=== PATIENT | female | born 1930 | race Caucasian/White ===

== ENCOUNTER 2017-12-25 14:11 | Inpatient (IN) | payer OTHER ==
[~2017-12-25] VITALS: Ht 160 cm; Wt 66.2 kg
--- NOTE | ~2017-12-25 | EKG ---
[place] [address] ELECTROCARDIOGRAM REPORT Name: BONITA HUNT Room: [address] IN [facility].#: [id number] Admission: 12/25/17 Attend Phys: Jose Hightower MD Discharge: Date of : 32 Report #: [id number] THIS REPORT FOR: //name// [facility] ED Test Date: 2017-12-25 Test Time: 15:20:39 Pat Name: BONITA HUNT Department: Room: Gender: Product Info Specialist: Zac STEPHEN : 1930 Requested By: Devyn Ying Order Number: [id number] MD: Measurements Intervals [place] Rate: 65 P: 41 MA: 162 QRS: -24 QRSD: 146 T: 139 QT: 454 QTc: 473 Interpretive Statements Sinus rhythm Left bundle branch block Compared to ECG 07/14/2009 07:49:11 Ventricular premature complex(es) no longer present [email or web address] By: 1520 1520 Epiphany EpiphanyMD /EPI
--- NOTE | ~2017-12-25 | PROC ---
[address] [address] PROCEDURE REPORT Name: BONITA HUNT Room: [address] IN ..#: [id number] Admission: 12/25/17 Attend Phys: Jose Hightower MD Discharge: Date of : 31 Report #: [id number] THIS REPORT FOR: //name// For GI report, please see the Provation report in Perceptive 7 content. By: 0858Medical Records Staff ISRAEL /KANDY
[2017-12-25 14:19] VITALS: BP 131/71
[2017-12-25] MEDS ORDERED: NORVASC5 MG PO (14:32)
[2017-12-25] MEDS ORDERED: DONEPEZIL HCL 55 M1 PO (14:32)
[2017-12-25] MEDS ORDERED: HYDROCODONE-AP1 EAC6 PO (14:33)
[2017-12-25] MEDS ORDERED: SYNTHROID50 MCG PO (14:33)
[2017-12-25] MEDS ORDERED: LEVEMIR SUBQ (14:33)
[2017-12-25] MEDS ORDERED: HYDROXYZINE HCL25 M1 PO (14:33)
[2017-12-25] MEDS ORDERED: COUMADIN 2 MG TA2 M1 PO (14:34)
[2017-12-25] MEDS ORDERED: NOVOLOG100 UNIT/1 SUBQ (14:34)
[2017-12-25] MEDS ORDERED: SERTRALINE HCL50 MG PO (14:34)
[2017-12-25] MEDS ORDERED: TOPROL XL25 MG PO (14:34)
[2017-12-25] MEDS ORDERED: SEROQUEL 25 MG25 M1 PO (14:34)
[2017-12-25] MEDS ORDERED: APAP650 PO (14:35)
[2017-12-25 15:30] LABS: ABSOLUTE BASOPHILS 0.1 thou/uL (0.0-0.2); ABSOLUTE EOSINOPHILS 0.1 thou/uL (0.0-0.7); ABSOLUTE LYMPHOCYTES 1.2 thou/uL (0.8-5.3); ABSOLUTE MONOCYTES 0.3 thou/uL (0.0-1.2); ABSOLUTE NEUTROPHILS 2.7 thou/uL (1.6-8.1); BASOPHILS 1.5 %; EOSINOPHILS 2.2 %; HEMATOCRIT 28.3 % (37.0-47.0); HEMOGLOBIN 9.1 gm/dL (12.0-15.0); LYMPHOCYTES 27.2 %; MCH 26.8 pg (26.0-34.0); MCHC 32.2 g/dL (28.0-37.0); MCV 83.2 fL (80.0-100.0); MONOCYTES 7.5 %; MPV 7.3 fl. (7.2-11.1); NUCLEATED RBCS 0 /100WBC; PLATELET COUNT* 358 thou/uL (150-400); POLYS 61.6 %; RDW-CV 19.2 % (10.5-14.5); WBC 4.4 thou/uL (4.0-11.0)
[2017-12-25 15:38] LABS: ANION GAP 10 mmol/L (7-16); BUN 7 mg/dL (7-18); CALCIUM 8.2 mg/dL (8.5-10.1); CHLORIDE 107 mmol/L (98-107); CO2 25 mmol/L (21-32); GLUCOSE 152 mg/dL (70-99); INR 2.6; POTASSIUM 3.6 mmol/L (3.5-5.1); SODIUM 142 mmol/L (136-145)
[2017-12-25 15:45] LABS: ALBUMIN 2.5 g/dL (3.4-5.0); ALKALINE PHOSPHATASE 69 U/L (46-116); LIPASE 46 U/L (73-393); SGOT 19 U/L (15-37); SGPT 7 U/L (30-65); TOTAL BILIRUBIN 0.3 mg/dL (<0.1-1.0); TOTAL PROTEIN 6.1 g/dL (6.4-8.2); TROPONIN-I LEVEL <0.06 ng/mL (<0.06)
[2017-12-25 16:53] LABS: URINE BILIRUBIN NEGATIVE (Negative); URINE BLOOD TRACE (Negative); URINE CLARITY HAZY; URINE COLOR YELLOW; URINE GLUCOSE-RANDOM NEGATIVE (Negative); URINE KETONES 1+ (Negative); URINE LEUKOCYTES-REFLEX 1+ (Negative); URINE NITRITE-REFLEX NEGATIVE (Negative); URINE PROTEIN TRACE (Negative); URINE SPECIFIC GRAVITY 1.025 (1.005-1.030); URINE UROBILINOGEN 0.2 E.U./dl (0.2-1.0)
[2017-12-25 16:58] LABS: SQUAMOUS >10 Many /LPF (0-3); URINE WBC-REFLEX >25 Many /HPF (0-5)
[2017-12-25 16:59] LABS: CASTS None Seen /LPF (None Seen); CRYSTALS None Seen /LPF (None Seen); URINE RBC 0-2 Rare /HPF (0-2); YEAST-REFLEX Present (None Seen)
[2017-12-25 19:31] VITALS: BP 159/75
[2017-12-25 19:50] VITALS: BP 175/76
[2017-12-25 23:55] VITALS: BP 178/77
[2017-12-26 04:28] LABS: CALCIUM 8.1 mg/dL (8.5-10.1); POTASSIUM 3.4 mmol/L (3.5-5.1)
[2017-12-26 04:36] LABS: ABSOLUTE BASOPHILS 0.1 thou/uL (0.0-0.2); ABSOLUTE EOSINOPHILS 0.2 thou/uL (0.0-0.7); ABSOLUTE MONOCYTES 0.5 thou/uL (0.0-1.2); ABSOLUTE NEUTROPHILS 2.1 thou/uL (1.6-8.1); BASOPHILS 1.3 %; EOSINOPHILS 3.7 %; HEMATOCRIT 27.5 % (37.0-47.0); HEMOGLOBIN 8.7 gm/dL (12.0-15.0); LYMPHOCYTES 41.5 %; MCH 26.4 pg (26.0-34.0); MCHC 31.7 g/dL (28.0-37.0); MCV 83.2 fL (80.0-100.0); MONOCYTES 10.2 %; MPV 7.7 fl. (7.2-11.1); NUCLEATED RBCS 0 /100WBC; PLATELET COUNT* 332 thou/uL (150-400); POLYS 43.3 %; RBC 3.31 mil/uL (4.20-5.00); RDW-CV 19.4 % (10.5-14.5); WBC 4.9 thou/uL (4.0-11.0)
[2017-12-26 08:00] VITALS: BP 184/72
[2017-12-26 11:39] VITALS: BP 161/59
[2017-12-26 12:22] LABS: INR 2.5; PROTIME 24.1 Seconds (9.20-11.50)
[2017-12-26 15:32] VITALS: BP 160/67
[2017-12-26 20:30] VITALS: BP 166/74
[2017-12-26 23:30] VITALS: BP 165/63
[2017-12-27 04:40] LABS: ABSOLUTE BASOPHILS 0.1 thou/uL (0.0-0.2); ABSOLUTE EOSINOPHILS 0.1 thou/uL (0.0-0.7); ABSOLUTE LYMPHOCYTES 1.4 thou/uL (0.8-5.3); ABSOLUTE MONOCYTES 0.5 thou/uL (0.0-1.2); ABSOLUTE NEUTROPHILS 2.7 thou/uL (1.6-8.1); BASOPHILS 1.2 %; HEMATOCRIT 28.2 % (37.0-47.0); HEMOGLOBIN 8.7 gm/dL (12.0-15.0); LYMPHOCYTES 30.4 %; MCH 26.3 pg (26.0-34.0); MCHC 30.9 g/dL (28.0-37.0); MCV 84.9 fL (80.0-100.0); MONOCYTES 10.2 %; MPV 7.8 fl. (7.2-11.1); NUCLEATED RBCS 0 /100WBC; PLATELET COUNT* 347 thou/uL (150-400); POLYS 56.2 %; RBC 3.32 mil/uL (4.20-5.00); RDW-CV 19.2 % (10.5-14.5); WBC 4.8 thou/uL (4.0-11.0)
[2017-12-27 05:24] LABS: ALBUMIN 2.3 g/dL (3.4-5.0); CALCIUM 8.3 mg/dL (8.5-10.1); POTASSIUM 3.6 mmol/L (3.5-5.1); TOTAL BILIRUBIN 0.2 mg/dL (<0.1-1.0); TOTAL PROTEIN 5.4 g/dL (6.4-8.2)
[2017-12-27 08:40] VITALS: BP 155/76
[2017-12-27 16:00] VITALS: BP 156/78
[2017-12-27 20:30] VITALS: BP 166/66
[2017-12-28 08:00] VITALS: BP 170/63
[2017-12-28 15:23] LABS: INR 2.3; PROTIME 22.1 Seconds (9.20-11.50)
[2017-12-28 15:41] VITALS: BP 147/84
[2017-12-28 19:21] VITALS: BP 150/66; BP 157/64; BP 165/64
[2017-12-28 20:30] VITALS: BP 167/64
[2017-12-28 21:06] VITALS: BP 150/66; BP 157/63; BP 164/64
[2017-12-29 03:59] LABS: ABSOLUTE BASOPHILS 0.1 thou/uL (0.0-0.2); ABSOLUTE EOSINOPHILS 0.2 thou/uL (0.0-0.7); ABSOLUTE LYMPHOCYTES 1.7 thou/uL (0.8-5.3); ABSOLUTE MONOCYTES 0.6 thou/uL (0.0-1.2); ABSOLUTE NEUTROPHILS 3.1 thou/uL (1.6-8.1); EOSINOPHILS 4.1 %; HEMATOCRIT 27.6 % (37.0-47.0); HEMOGLOBIN 8.7 gm/dL (12.0-15.0); LYMPHOCYTES 29.9 %; MCHC 31.5 g/dL (28.0-37.0); MCV 82.5 fL (80.0-100.0); MONOCYTES 9.9 %; MPV 7.3 fl. (7.2-11.1); NUCLEATED RBCS 0 /100WBC; PLATELET COUNT* 327 thou/uL (150-400); POLYS 55.1 %; RBC 3.35 mil/uL (4.20-5.00); RDW-CV 19.5 % (10.5-14.5); WBC 5.7 thou/uL (4.0-11.0)
[2017-12-29 04:07] LABS: ALBUMIN 2.2 g/dL (3.4-5.0); CALCIUM 8.1 mg/dL (8.5-10.1); TOTAL BILIRUBIN 0.2 mg/dL (<0.1-1.0); TOTAL PROTEIN 5.3 g/dL (6.4-8.2)
[2017-12-29 04:09] LABS: INR 1.9; PROTIME 18.4 Seconds (9.20-11.50)
[2017-12-29 04:12] LABS: POTASSIUM 2.8 mmol/L (3.5-5.1)
[2017-12-29 08:17] VITALS: BP 168/60
[2017-12-29 15:44] VITALS: BP 151/64
[2017-12-29 20:00] VITALS: BP 167/81
[2017-12-30 00:10] VITALS: BP 163/68
[2017-12-30 04:09] LABS: ABSOLUTE BASOPHILS 0.1 thou/uL (0.0-0.2); ABSOLUTE EOSINOPHILS 0.2 thou/uL (0.0-0.7); ABSOLUTE LYMPHOCYTES 1.7 thou/uL (0.8-5.3); ABSOLUTE MONOCYTES 0.5 thou/uL (0.0-1.2); ABSOLUTE NEUTROPHILS 1.9 thou/uL (1.6-8.1); BASOPHILS 1.2 %; EOSINOPHILS 5.4 %; HEMATOCRIT 27.7 % (37.0-47.0); HEMOGLOBIN 8.8 gm/dL (12.0-15.0); LYMPHOCYTES 39.4 %; MCH 26.3 pg (26.0-34.0); MCHC 31.8 g/dL (28.0-37.0); MCV 82.5 fL (80.0-100.0); MPV 7.6 fl. (7.2-11.1); NUCLEATED RBCS 0 /100WBC; PLATELET COUNT* 307 thou/uL (150-400); RBC 3.36 mil/uL (4.20-5.00); RDW-CV 18.9 % (10.5-14.5); WBC 4.4 thou/uL (4.0-11.0)
[2017-12-30 04:22] LABS: INR 1.6; PROTIME 15.1 Seconds (9.20-11.50)
[2017-12-30 04:33] LABS: ALBUMIN 2.3 g/dL (3.4-5.0); CALCIUM 8.2 mg/dL (8.5-10.1); CREATININE 0.8 mg/dL (0.6-1.3); POTASSIUM 4.4 mmol/L (3.5-5.1); TOTAL BILIRUBIN 0.2 mg/dL (<0.1-1.0); TOTAL PROTEIN 5.8 g/dL (6.4-8.2)
[2017-12-30 08:34] VITALS: BP 178/73
[2017-12-30 08:36] VITALS: BP 178/73
[2017-12-30 09:00] VITALS: BP 160/83
[2017-12-30 16:08] VITALS: BP 176/77
[2017-12-30 22:00] VITALS: BP 153/57
[2017-12-31] VITALS: BP 174/72
[2017-12-31 04:07] LABS: HEMATOCRIT 26.8 % (37.0-47.0); HEMOGLOBIN 8.5 gm/dL (12.0-15.0); MCH 26.3 pg (26.0-34.0); MCHC 31.8 g/dL (28.0-37.0); MCV 82.8 fL (80.0-100.0); MPV 7.8 fl. (7.2-11.1); RBC 3.24 mil/uL (4.20-5.00); RDW-CV 19.6 % (10.5-14.5); WBC 5.7 thou/uL (4.0-11.0)
[2017-12-31 04:16] LABS: ALBUMIN 2.3 g/dL (3.4-5.0); CALCIUM 8.5 mg/dL (8.5-10.1); CREATININE 0.9 mg/dL (0.6-1.3); MAGNESIUM 1.4 mg/dL (1.8-2.4); POTASSIUM 3.9 mmol/L (3.5-5.1); TOTAL BILIRUBIN 0.2 mg/dL (<0.1-1.0); TOTAL PROTEIN 5.8 g/dL (6.4-8.2)
[2017-12-31 09:45] VITALS: BP 165/68
[2017-12-31 16:00] VITALS: BP 146/60
[2017-12-31 21:45] VITALS: BP 156/65
[2018-01-01 04:23] LABS: HEMOGLOBIN 7.9 gm/dL (12.0-15.0); MCH 26.1 pg (26.0-34.0); MCHC 31.4 g/dL (28.0-37.0); MCV 82.9 fL (80.0-100.0); MPV 7.9 fl. (7.2-11.1); RBC 3.02 mil/uL (4.20-5.00); RDW-CV 19.3 % (10.5-14.5); WBC 3.8 thou/uL (4.0-11.0)
[2018-01-01 04:36] LABS: ALBUMIN 2.2 g/dL (3.4-5.0); CALCIUM 8.4 mg/dL (8.5-10.1); CREATININE 0.9 mg/dL (0.6-1.3); MAGNESIUM 1.3 mg/dL (1.8-2.4); POTASSIUM 3.4 mmol/L (3.5-5.1); TOTAL BILIRUBIN 0.2 mg/dL (<0.1-1.0); TOTAL PROTEIN 5.4 g/dL (6.4-8.2)
[2018-01-01 08:30] VITALS: BP 144/69
[2018-01-01 16:43] VITALS: BP 170/77
[2018-01-01 21:30] VITALS: BP 158/61
[2018-01-02 09:50] VITALS: BP 141/72
[2018-01-02] MEDS ORDERED: AUGMENTIN250 MG/55 PO ×2 (14:11→15:38)
[2018-01-02] MEDS ORDERED: XANAX 0.25 MG0.25 MG PO (14:39)
[2018-01-02 14:43] VITALS: BP 141/72
[2018-01-02 14:46] VITALS: BP 141/72
--- NOTE | 2018-01-09 16:59 | CON ---
[address] [address] CONSULTATION Name: BONITA HUNT Room: [address] IN .R.#: [id number] Admission: 12/25/17 Attend Phys: Jose Hightower MD Discharge: 01/02/18 Date of : 31 Report #: [id number] THIS REPORT FOR: //name// CC: Jose Pereyra DICTATED BY: Adriana Perales [facility] DATE OF SERVICE: 12/26/2017 Please note at the time of this dictation, the patient was seen and physically examined by myself. REASON FOR CONSULTATION: Nausea and vomiting and dysphagia. HISTORY OF PRESENT ILLNESS: This is an 87-year-old female who presented to the Emergency Room, was being unable to keep anything down, which was an onset from 5 days ago, then she has been having recurrent nausea and vomiting. The patient had been hospitalized at [place] in November for resection of a cancerous tumor in her colon and then was discharged from there and sent her to rehabilitation. Apparently, she has been having ongoing esophageal pain, she describes it as chest pain and then having this nausea and vomiting at that time. In 2014, she was seen by us and she had an EGD performed at that time that showed a hypertonic esophageal stricture in which Botox was injected at that time. She was seen again in 2016 as an inpatient for anemia at that time, but no endoscopy studies were performed. The patient does complain of a little bit of incisional discomfort, but otherwise, no other problems noted at this time. ALLERGIES: INCLUDE METRONIDAZOLE, MELOXICAM, LISINOPRIL, DULOXETINE AND NITROIMIDAZOLE. MEDICATIONS: From home include Norvasc, donepezil, hydrocodone, hydralazine, hydroxyzine, Levemir, Synthroid, Lopressor, NovoLog, Seroquel, Coumadin, Zoloft and Tylenol Arthritis. PAST MEDICAL HISTORY: Diabetes, history of stent placement, hypothyroidism, dementia. PAST SURGICAL HISTORY: Recent colon resection, hysterectomy, appendectomy and cholecystectomy. FAMILY HISTORY: Noncontributory. SOCIAL HISTORY: Negative for any alcohol, [place] [address] CONSULTATION Name: ANDREINABONITA VICENTE Room: [address]#: [id number] Admission: 12/25/17 Attend Phys: Jose Hightower MD Discharge: 01/02/18 Date of : 31 Report #: [id number] REVIEW OF SYSTEMS: Twelve-point review of systems is essentially negative except what is mentioned in the HPI. PHYSICAL EXAMINATION: VITAL SIGNS: Temperature 36.2, pulse 66, respirations 17, blood pressure 184/72. HEART: Regular rate and rhythm. LUNGS: Clear. ABDOMEN: Soft, positive bowel sounds in all 4 quadrants with no masses or tenderness noted. Incision superficially, some suppuration noted with slight tenderness around the site. LABORATORY DATA: Hemoglobin 8.7, hematocrit 27.5, white count is 4.9, platelets 332. Sodium 142, potassium 3.4, chloride 108, CO2 26, BUN is 6, creatinine is 1, GFR is 53 and glucose is 123. PT is 25 and INR is 2.6. CT of the abdomen and pelvis, small hiatal hernia post-cholecystectomy, extensive pancreatic calcifications noted and colonic diverticulosis. IMPRESSION: 1. Nausea and vomiting. 2. Dysphagia. 3. Anticoagulant therapy, history of stent. 4. Recent colon resection secondary to tumor. 5. Anemia, chronic. PLAN: 1. We will await her records from [facility] for review to see what has been done. 2. Warfarin is currently on hold. 3. After reviewing the records and her INR returns down to normal, we will consider an EGD with Botox. 4. Depending on reviewing of records, may consider a barium swallow to further evaluate her esophagus and complaints. Thank you for allowing us to participate in this patient's care. Please do not hesitate to call with any questions in regard to this consult. ADDENDUM The patient with history of colon cancer and recent sigmoid resection and colocolonic anastomosis who also has history of achalasia and has had undergone upper endoscopy with Botox injection 2 months ago. She presents with dysphagia and inability to swallow. The patient also is on anticoagulation therapy, warfarin for her history of stents. We will consider low dose Xanax 0.25 mg q. 8 hours to see [place] [address] CONSULTATION Name: BONITA HUNT Room: [address] IN ..#: [id number] Admission: 12/25/17 Attend Phys: Jose Hightower MD Discharge: 01/02/18 Date of : 31 Report #: [id number] esophagus and improve her swallowing. We will consider upper endoscopy and further evaluation of her esophagus once her INR is below 1.2. <ELECTRONICALLY SIGNED> By: Bhanu Christensen MD 01/09/18 1659 1028 [id number] Christensen MD /nt
--- NOTE | 2018-01-19 11:09 | PATH ---
[address] [address] PATHOLOGY RPT PROCEDURE Name: BONITA HUNT Room: [address] IN .R.#: [id number] Admission: 12/25/17 Date of : 32 Discharge: 01/02/18 Report #: [id number] Path Case #: [id number] [facility] Accession Number: [id number] . 01 Material submitted: . DUODENAL ULCER BIOPSY . 01 Clinical history: . Dehydration, UTI . 02 Diagnosis: Duodenal ulcer biopsy: - Severe nonspecific active duodenitis, negative for granulomas, viral inclusions and dysplasia. (LY:leanna; 01/02/2018) QMS/01/02/2018 . 02 Electronically signed: . Wilmar Sanchez MD, Pathologist NPI- [id number] . 01 Gross description: . The specimen is received in formalin, labeled "Emperatriz Bonita, duodenal ulcer biopsy" and consists of multiple fragments of garcia soft tissue measuring 1.5 x 0.5 x 0.2 cm in aggregate. They are entirely submitted in A1. (SDY; 01/01/2018) SYU/SYU . 02 Pathologist provided ICD-10: K29.80 . 02 CPT . 702028 Performed at: [address], [place], [place] [id number] MD Tex Valenzuela MD Phone: [phone] Performed at: [address] [facility] [address], [place], [place] [id number] MD Wilmar Sanchez MD Phone: [phone]
== END 2018-01-02 16:00 | disposition home health service (06) | DRG 177 ==
LOC: M.ERS 14:11 → M.ORTHSURG 17:32 → M.TBA-ER 17:32 → M.ORTHSURG 19:39
PROVIDERS: Emergency Medicine Emergency Medical Services; Family Medicine; Internal Medicine Gastroenterology; Nurse Practitioner Adult Health; ADMIT Internal Medicine
DX: J69.0 Pneumonitis due to inhalation of food and vomit (principal); E43 Unspecified severe protein-calorie malnutrition; N39.0 Urinary tract infection, site not specified; K22.4 Dyskinesia of esophagus; E86.0 Dehydration; E87.6 Hypokalemia; K44.9 Diaphragmatic hernia without obstruction or gangrene; K26.9 Duodenal ulcer, unspecified as acute or chronic, without hemorrhage or perforation; E83.42 Hypomagnesemia; E03.9 Hypothyroidism, unspecified; F03.90 Unspecified dementia, unspecified severity, without behavioral disturbance, psychotic disturbance, mood disturbance, and anxiety; D64.9 Anemia, unspecified; E11.9 Type 2 diabetes mellitus without complications; Z85.038 Personal history of other malignant neoplasm of large intestine; Z68.25 Body mass index [BMI] 25.0-25.9, adult; Z95.5 Presence of coronary angioplasty implant and graft; Z90.49 Acquired absence of other specified parts of digestive tract; Z90.710 Acquired absence of both cervix and uterus; Z79.01 Long term (current) use of anticoagulants; Z79.4 Long term (current) use of insulin; Z79.899 Other long term (current) drug therapy; Z88.8 Allergy status to other drugs, medicaments and biological substances

== ENCOUNTER 2018-01-03 20:03 | Inpatient (IN) | payer OTHER ==
[~2018-01-03] VITALS: Ht 160 cm; Wt 80.3 kg
[~2018-01-03 20:03] MED LIST: APAP650 PO; AUGMENTIN250 MG/55 PO; COUMADIN 2 MG TA2 M1 PO; DONEPEZIL HCL 55 M1 PO; HYDROCODONE-AP1 EAC6 PO; HYDROXYZINE HCL25 M1 PO; LEVEMIR SUBQ; NORVASC5 MG PO; NOVOLOG100 UNIT/1 SUBQ; SEROQUEL 25 MG25 M1 PO; SERTRALINE HCL50 MG PO; SYNTHROID50 MCG PO; TOPROL XL25 MG PO; XANAX 0.25 MG0.25 MG PO
[2018-01-03 20:26] LABS: ABSOLUTE EOSINOPHILS 0.2 thou/uL (0.0-0.7); ABSOLUTE LYMPHOCYTES 1.7 thou/uL (0.8-5.3); ABSOLUTE MONOCYTES 0.6 thou/uL (0.0-1.2); ABSOLUTE NEUTROPHILS 2.2 thou/uL (1.6-8.1); BASOPHILS 0.7 %; EOSINOPHILS 3.6 %; HEMATOCRIT 29.6 % (37.0-47.0); HEMOGLOBIN 9.5 gm/dL (12.0-15.0); MCH 25.9 pg (26.0-34.0); MCV 81.1 fL (80.0-100.0); MONOCYTES 13.6 %; MPV 7.6 fl. (7.2-11.1); NUCLEATED RBCS 0 /100WBC; POLYS 46.1 %; RBC 3.65 mil/uL (4.20-5.00); RDW-CV 19.6 % (10.5-14.5); WBC 4.8 thou/uL (4.0-11.0)
[2018-01-03 20:28] LABS: PLATELET COUNT* 359 thou/uL (150-400)
[2018-01-03 20:36] LABS: ANION GAP 7 mmol/L (7-16); BUN 5 mg/dL (7-18); CALCIUM 9.1 mg/dL (8.5-10.1); CHLORIDE 105 mmol/L (98-107); CO2 29 mmol/L (21-32); CREATININE 1.2 mg/dL (0.6-1.3); GLUCOSE 70 mg/dL (70-99); POTASSIUM 3.5 mmol/L (3.5-5.1); SODIUM 141 mmol/L (136-145)
[2018-01-03 20:39] LABS: INR 1.6; PROTIME 15.8 Seconds (9.20-11.50)
[2018-01-03 20:47] LABS: ALBUMIN 2.5 g/dL (3.4-5.0); ALKALINE PHOSPHATASE 78 U/L (46-116); LIPASE 50 U/L (73-393); NT-PRO BRAIN NAT PEPTIDE 11011 pg/mL (<300); SGOT 15 U/L (15-37); SGPT 6 U/L (30-65); TOTAL BILIRUBIN 0.3 mg/dL (<0.1-1.0); TOTAL PROTEIN 5.9 g/dL (6.4-8.2); TROPONIN-I LEVEL <0.06 ng/mL (<0.06)
[2018-01-03 21:34] LABS: URINE BILIRUBIN NEGATIVE (Negative); URINE BLOOD NEGATIVE (Negative); URINE CLARITY CLEAR; URINE COLOR YELLOW; URINE GLUCOSE-RANDOM NEGATIVE (Negative); URINE KETONES NEGATIVE (Negative); URINE LEUKOCYTES-REFLEX TRACE (Negative); URINE NITRITE-REFLEX NEGATIVE (Negative); URINE PROTEIN TRACE (Negative); URINE UROBILINOGEN 0.2 E.U./dl (0.2-1.0)
[2018-01-03 21:50] LABS: SQUAMOUS 4-10 Moderate /LPF (0-3)
[2018-01-03 21:51] LABS: BACTERIA-REFLEX 1-9 Few /HPF (None Seen); CRYSTALS None Seen /LPF (None Seen); HYALINE CASTS 0-3 Few /LPF (None Seen); URINE RBC 0-2 Rare /HPF (0-2); URINE WBC-REFLEX 6-15 Few /HPF (0-5)
[2018-01-03 23:16] VITALS: BP 103/55
[2018-01-04] VITALS: BP 146/79
[2018-01-04 04:00] VITALS: BP 120/67
[2018-01-04 04:27] LABS: HEMATOCRIT 25.5 % (37.0-47.0); HEMOGLOBIN 8.2 gm/dL (12.0-15.0); MCH 26.1 pg (26.0-34.0); MCHC 32.1 g/dL (28.0-37.0); MCV 81.1 fL (80.0-100.0); MPV 7.5 fl. (7.2-11.1); RBC 3.14 mil/uL (4.20-5.00); RDW-CV 19.8 % (10.5-14.5); WBC 4.4 thou/uL (4.0-11.0)
[2018-01-04 04:36] LABS: ALKALINE PHOSPHATASE 62 U/L (46-116); ANION GAP 2 mmol/L (7-16); BUN 4 mg/dL (7-18); CALCIUM 8.6 mg/dL (8.5-10.1); CHLORIDE 109 mmol/L (98-107); CO2 29 mmol/L (21-32); CREATININE 1.1 mg/dL (0.6-1.3); GLUCOSE 91 mg/dL (70-99); POTASSIUM 3.4 mmol/L (3.5-5.1); SGOT 15 U/L (15-37); SODIUM 140 mmol/L (136-145); TOTAL BILIRUBIN 0.4 mg/dL (<0.1-1.0); TOTAL PROTEIN 5.2 g/dL (6.4-8.2)
[2018-01-04 05:01] LABS: SGPT < 6 U/L (30-65)
[2018-01-04 08:05] VITALS: BP 126/54
[2018-01-04] MEDS ORDERED: PROTONIX 20 MG20 M1 PO (11:12)
--- NOTE | 2018-01-04 13:05 | EKG ---
[place] [address] ELECTROCARDIOGRAM REPORT Name: BONITA HUNT Room: [address] IN ..#: [id number] Admission: 01/03/18 Attend Phys: Jose Hightower MD Discharge: Date of : 31 Report #: [id number] THIS REPORT FOR: //name// [facility] ED Test Date: 2018-01-03 Test Time: 20:24:17 Pat Name: BONITA HUNT Department: Room: Gender: Health Promotion Officer: CORINNE Frank : 1930 Requested By: Sofi Figueroa Order Number: [id number] MD: Valdo Serrano Measurements Intervals [place] Rate: 86 P: ME: QRS: -27 QRSD: 137 T: 146 QT: 420 QTc: 503 Interpretive Statements Atrial fibrillation Left bundle branch block Compared to ECG 12/25/2017 15:20:39 Sinus rhythm no longer present Electronically Signed On 01-04-2018 13:04:49 CDT by Valdo Serrano [email or web address] <ELECTRONICALLY SIGNED> By: Valdo Serrano MD, [facility] 01/04/18 1304 23 23 Valdo Serrano MD, [facility] /EPI
--- NOTE | 2018-01-04 13:05 | EKG ---
[place] [address] ELECTROCARDIOGRAM REPORT Name: BONITA HUNT Room: [address] ADM IN M.R.#: [id number] Admission: 01/03/18 Attend Phys: Jose Hightower MD Discharge: Date of : 31 Report #: [id number] THIS REPORT FOR: //name// [facility] ED Test Date: 2018-01-03 Test Time: 20:25:09 Pat Name: BONITA HUNT Department: Room: [address] Gender: F Lvn Home Health: CORINNE Frank : 1930 Requested By: Jose Hightower Order Number: [id number] Melanie CHILDRESS: Valdo Serrano Measurements Intervals [place] Rate: 123 P: NM: QRS: -30 QRSD: 133 T: 149 QT: 392 QTc: 561 Interpretive Statements Atrial fibrillation Left bundle branch block Compared to ECG 12/25/2017 15:20:39 Sinus rhythm no longer present Electronically Signed On 01-04-2018 13:04:58 CDT by Valdo Serrano [email or web address] <ELECTRONICALLY SIGNED> By: Valdo Serrano MD, [facility] 01/04/18 1304 24 24 Valdo Serrano MD, [facility] /EPI
[2018-01-04 14:06] LABS: INR 1.6; PROTIME 15.1 Seconds (9.20-11.50)
[2018-01-04 16:12] VITALS: BP 125/47
--- NOTE | 2018-01-04 16:15 | 2DMMODE ---
[place] [address] 2 D/M-MODE ECHOCARDIOGRAM Name: BONITA HUNT Room: [address] IN [facility]#: [id number] Admission: 01/03/18 Attend Phys: Jose Hightower, Discharge: Date of : 32 Date of Service: 01/04/18 1615 Report #: [id number] THIS REPORT FOR: //name// APPROVED REPORT Study performed: 01/04/2018 15:20:46 EXAM: Comprehensive 2D, Doppler, and color-flow Echocardiogram Patient Location: In-Patient Room #: 200 Status: routine BSA: 1.75 HR: 51 bpm BP: 126/54 mmHg Rhythm: Atrial Fibrillation Other Information Study Quality: Good Indications Atrial Fibrillation 2D Dimensions LVEF(%): 37.17 (>50%) IVSd: 16.09 (7-11mm) LVOT Diam: 18.66 (18-24mm) LVDd: 38.89 mm PWd: 11.34 (7-11mm) Ascending Ao: 30.20 (22-36mm) LVDs: 32.06 (25-40mm) Aortic Root: 28.99 mm See's LVEF: 37.17 % Volumes Left Atrial Volume (Systole) LA ESV Index: 46.10 mL/m2 Aortic Valve AoV Peak Fausto.: 1.07 m/s AO Peak Gr.: 4.54 mmHg LVOT Max P.87 mmHg AO Mean Gr.: 2.45 mmHg LVOT Mean P.93 mmHg LVOT Max V: 0.68 m/s AO V2 VTI: 21.63 cm LVOT Mean V: 0.45 m/s FRANCISCO (VTI): 1.91 cm2 LVOT V1 VTI: 15.11 cm Mitral Valve MV Decel. Time: 177.27 [place] [address] 2 D/M-MODE ECHOCARDIOGRAM Name: BONITA HUNT Room: [address] IN [facility]#: [id number] Admission: 01/03/18 Attend Phys: Jose Hightower, Discharge: Date of : 31 Date of Service: 01/04/18 1615 Report #: [id number] MV PHT: 51.41 ms MVA (PHT): 4.28 cm2 TDI Medial E' Fausto.: 0.08 m/s Lateral E' Fausto.: 0.10 m/s Pulmonary Valve PV Peak Fausto.: 0.81 m/s PV Peak Gr.: 2.64 mmHg Tricuspid Valve RAP Estimate: 15.00 mmHg TR Peak Gr.: 31.61 mmHg RVSP: 46.61 mmHg PA Pressure: 46.61 mmHg Left Ventricle The left ventricle is normal size. There is normal LV segmental wall motion. Mild concentric left ventricular hypertrophy. Left ventricular systolic function is mildly decreased. LVEF is 50%. This study is not technically sufficient to allow evaluation of the LV diastolic function due to atrial fibrillation. Right Ventricle The right ventricle is normal size. The right ventricular systolic function is normal. Atria Left atrium is moderately dilated. Right atrium is mildly dilated. Aortic Valve Mild aortic valve sclerosis. No aortic regurgitation is present. No hemodynamically significant valvular aortic stenosis. Mitral Valve Mild mitral annular calcification. Mild mitral regurgitation. No evidence of mitral valve stenosis. Tricuspid Valve The tricuspid valve is normal in structure. Mild tricuspid regurgitation. Moderate pulmonary hypertension. Pulmonic Valve The pulmonary valve is normal in structure. Mild [place]mon[place] [address] 2 D/M-MODE ECHOCARDIOGRAM Name: BONITA HUNT Room: [address]#: [id number] Admission: 01/03/18 Attend Phys: Jose Hightower, Discharge: Date of : 32 Date of Service: 01/04/18 1615 Report #: [id number] Great Vessels The aortic root is normal in size. IVC is dilated and collapses <50% with inspiration. Pericardium There is no pericardial effusion. <Conclusion> The left ventricle is normal size. Mild concentric left ventricular hypertrophy. Left ventricular systolic function is mildly decreased. LVEF is 50%. This study is not technically sufficient to allow evaluation of the LV diastolic function due to atrial fibrillation. The right ventricle is normal size. Left atrium is moderately dilated. Right atrium is mildly dilated. Mild aortic valve sclerosis. No aortic regurgitation is present. No hemodynamically significant valvular aortic stenosis. Mild mitral annular calcification. Mild mitral regurgitation. No evidence of mitral valve stenosis. The tricuspid valve is normal in structure. Mild tricuspid regurgitation. IVC is dilated and collapses <50% with inspiration. There is no pericardial effusion. There is normal LV segmental wall motion. <ELECTRONICALLY SIGNED> By: Valdo Serrano MD, FACC 01/04/18 1615 161 161 Valdo Serrano MD, FACC /INF
[2018-01-04 20:00] VITALS: BP 125/61
[2018-01-05] VITALS (7 sets, daily range): BP systolic 98–119; BP diastolic 40–55
[2018-01-06 03:42] VITALS: BP 138/52
[2018-01-06 08:00] VITALS: BP 132/52
[2018-01-06 14:59] LABS: INR 2.2; PROTIME 20.9 Seconds (9.20-11.50)
[2018-01-06 16:00] VITALS: BP 124/60
[2018-01-06 20:00] VITALS: BP 122/61
[2018-01-07] VITALS: BP 116/57
[2018-01-07 03:15] LABS: INR 2.2; PROTIME 21.6 Seconds (9.20-11.50)
[2018-01-07 04:00] VITALS: BP 130/61
[2018-01-07 07:45] VITALS: BP 137/74
[2018-01-07 11:50] VITALS: BP 130/57
[2018-01-07 13:31] LABS: CALCIUM 8.2 mg/dL (8.5-10.1); CREATININE 1.4 mg/dL (0.6-1.3); POTASSIUM 3.5 mmol/L (3.5-5.1)
[2018-01-07 15:55] VITALS: BP 119/73
[2018-01-07 20:00] VITALS: BP 117/63
[2018-01-08] VITALS: BP 104/78
[2018-01-08 04:00] VITALS: BP 129/69
[2018-01-08 04:59] LABS: HEMOGLOBIN 7.4 gm/dL (12.0-15.0); MCH 26.2 pg (26.0-34.0); MCHC 32.1 g/dL (28.0-37.0); MCV 81.4 fL (80.0-100.0); MPV 8.1 fl. (7.2-11.1); RBC 2.82 mil/uL (4.20-5.00); RDW-CV 20.5 % (10.5-14.5)
[2018-01-08 05:00] LABS: INR 1.9; PROTIME 18.5 Seconds (9.20-11.50)
[2018-01-08 05:06] LABS: CREATININE 1.3 mg/dL (0.6-1.3); POTASSIUM 3.4 mmol/L (3.5-5.1)
[2018-01-08 08:15] VITALS: BP 125/65
[2018-01-08 11:21] VITALS: BP 130/63
[2018-01-08 15:21] VITALS: BP 130/68
[2018-01-08 15:51] LABS: URINE BILIRUBIN NEGATIVE (Negative); URINE BLOOD TRACE (Negative); URINE CLARITY CLOUDY; URINE COLOR YELLOW; URINE GLUCOSE-RANDOM NEGATIVE (Negative); URINE KETONES TRACE (Negative); URINE NITRITE-REFLEX NEGATIVE (Negative); URINE PROTEIN 2+ (Negative); URINE SPECIFIC GRAVITY >= 1.030 (1.005-1.030); URINE UROBILINOGEN 0.2 E.U./dl (0.2-1.0)
[2018-01-08 15:56] LABS: URINE LEUKOCYTES-REFLEX 2+ (Negative)
[2018-01-08 15:59] LABS: SQUAMOUS >10 Many /LPF (0-3)
[2018-01-08 16:01] LABS: BACTERIA-REFLEX >30 Many /HPF (None Seen); CASTS None Seen /LPF (None Seen); CRYSTALS None Seen /LPF (None Seen); URINE RBC 3-10 Few /HPF (0-2); URINE WBC-REFLEX >25 Many /HPF (0-5); YEAST-REFLEX Present (None Seen)
[2018-01-08 20:00] VITALS: BP 137/95
[2018-01-09] VITALS (7 sets, daily range): BP systolic 100–147; BP diastolic 51–83
[2018-01-09 05:21] LABS: INR 1.7; PROTIME 16.6 Seconds (9.20-11.50)
[2018-01-09 13:20] LABS: CALCIUM 7.7 mg/dL (8.5-10.1); CREATININE 1.4 mg/dL (0.6-1.3); POTASSIUM 3.7 mmol/L (3.5-5.1)
[2018-01-10 03:48] VITALS: BP 109/88
[2018-01-10 04:56] LABS: INR 1.7; PROTIME 16.7 Seconds (9.20-11.50)
[2018-01-10 07:55] VITALS: BP 139/71
[2018-01-10 11:41] LABS: CALCIUM 8.3 mg/dL (8.5-10.1); CREATININE 1.3 mg/dL (0.6-1.3); POTASSIUM 3.9 mmol/L (3.5-5.1)
[2018-01-10 12:05] VITALS: BP 144/78
[2018-01-10] MEDS ORDERED: SEROQUEL 25 MG25 M1 PO (13:00)
[2018-01-10 16:12] VITALS: BP 149/59
[2018-01-10 20:00] VITALS: BP 140/60
[2018-01-11] VITALS: BP 165/68
[2018-01-11 04:00] VITALS: BP 160/64
[2018-01-11 04:26] LABS: CALCIUM 8.3 mg/dL (8.5-10.1); CREATININE 1.3 mg/dL (0.6-1.3); POTASSIUM 3.8 mmol/L (3.5-5.1)
[2018-01-11 04:46] LABS: INR 1.8; PROTIME 17.6 Seconds (9.20-11.50)
--- NOTE | 2018-01-11 11:23 | CON ---
[address] [address] CONSULTATION Name: BONITA HUNT Room: [address] IN [facility].#: [id number] Admission: 01/03/18 Attend Phys: Jose Hightower MD Discharge: Date of : 31 Report #: [id number] THIS REPORT FOR: //name// CC: Jose Macias Pereyra DATE OF SERVICE: 01/10/2018 REQUESTING PHYSICIAN: Mike Peterson DO. REASON FOR CONSULTATION: Decreased urine output. HISTORY OF PRESENT ILLNESS: The patient is an 87-year-old female admitted to the hospital on 01/03/2018. She presents with complaints of weakness, nausea, vomiting, and was found to be in atrial fibrillation, UTI, and poor p.o. intake. She was admitted, started on Cardizem for AFib, was started on IV antibiotics because she could not tolerate p.o. antibiotics that were given her previously for her pneumonia and UTI. Her creatinine at admission was 1.2 and a 1.3 today. Baseline creatinine somewhere around 1. Urine output documented as being around 500-600 mL in a day, but the patient does not have a [place] and she is a somewhat incontinent in urine. PAST MEDICAL HISTORY: Significant for: 1. Chronic kidney disease stage 3. 2. Failure to thrive. 3. History of atrial fibrillation. 4. History of diabetes mellitus type 2. 5. History of coronary artery disease. 6. History of colon resection due to cancer. FAMILY HISTORY: Noncontributory. SOCIAL HISTORY: Her here and he is very supportive. MEDICATIONS: Reviewed. She is on levofloxacin, ____, insulin, Zosyn, Protonix, Aricept, and Norvasc. REVIEW OF SYSTEMS: Very difficult to obtain due to possible dementia, I am not sure as she is not really engaging into conversation. PHYSICAL EXAMINATION: GENERAL: She is awake, but does not engage in conversation. VITAL SIGNS: Blood pressure 144/78, heart rate is between 70 and 120, [place] [address] CONSULTATION Name: BONITA HUNT Room: [address]#: [id number] Admission: 01/03/18 Attend Phys: Jose Hightower MD Discharge: Date of : 31 Report #: [id number] respiratory rate 18, afebrile. HEENT: Pupils are round. Oral mucosa dry. LUNGS: Decreased air movement. CARDIOVASCULAR: Irregular rate. ABDOMEN: Soft. LOWER EXTREMITIES: Trace edema. LABORATORY DATA: Hemoglobin 7.4, was 9.5 on admission. Serum sodium is 140, potassium 3.9, chloride 106, carbon dioxide 26, BUN 10, creatinine 1.3. ASSESSMENT: An 87-year-old female with atrial fibrillation with rapid ventricular response and failure to thrive. Also has some acute kidney injury likely due to combination of under perfusion of the kidney due to atrial fibrillation with rapid ventricular response and G-tube poor p.o. intake. Cardiology follows her for her AFib. From my standpoint, we will give her some fluids. I would like to give her NS at 75 mL an hour. Her urine culture is pending. Blood culture is pending. We will follow her labs very closely with you. The patient is do not resuscitate. Thank you very much for asking my opinion on the patient's renal failure. <ELECTRONICALLY SIGNED> By: Pillo Mejia MD 01/11/18 1123 1452 2009Aavril Mejia MD /PMT
[2018-01-11 11:59] VITALS: BP 148/86
[2018-01-11 16:22] VITALS: BP 107/62
[2018-01-11 20:00] VITALS: BP 144/45
[2018-01-11 23:19] VITALS: BP 130/52
[2018-01-12 04:00] VITALS: BP 114/63
[2018-01-12 04:36] LABS: PROTIME 19.2 Seconds (9.20-11.50)
[2018-01-12 04:45] LABS: CALCIUM 8.7 mg/dL (8.5-10.1); CREATININE 1.2 mg/dL (0.6-1.3); POTASSIUM 3.9 mmol/L (3.5-5.1)
[2018-01-12 08:30] VITALS: BP 135/77
[2018-01-12 12:00] VITALS: BP 123/71
[2018-01-12 16:00] VITALS: BP 130/54
[2018-01-12 20:00] VITALS: BP 116/48
[2018-01-13] VITALS (7 sets, daily range): BP systolic 102–143; BP diastolic 56–81
[2018-01-14 04:00] VITALS: BP 126/71
[2018-01-14 08:30] VITALS: BP 104/70
[2018-01-14 11:40] VITALS: BP 142/75
[2018-01-14 15:41] VITALS: BP 129/74
[2018-01-14 20:00] VITALS: BP 151/78
[2018-01-14 20:45] LABS: BE -1.5 mmol/L (-2 to +3); HCO3 25.3 mmol/L (22.0-26.0)
[2018-01-14 22:05] LABS: PCO2 53.9 mmHg (35.0-45.0); pH 7.289 (7.340-7.450)
[2018-01-14 22:06] LABS: PO2 < 23.5 mmHg (75.0-100.0)
[2018-01-14 23:23] LABS: BE -1.7 mmol/L (-2 to +3); HCO3 24.2 mmol/L (22.0-26.0); PO2 112.4 mmHg (75.0-100.0)
[2018-01-15] VITALS: BP 95/74
[2018-01-15 04:00] VITALS: BP 128/64
[2018-01-15 05:36] LABS: CALCIUM 8.6 mg/dL (8.5-10.1); CREATININE 1.4 mg/dL (0.6-1.3); MAGNESIUM 1.6 mg/dL (1.8-2.4); PHOSPHORUS* 2.3 mg/dL (2.5-4.9); POTASSIUM 3.9 mmol/L (3.5-5.1)
[2018-01-15 08:30] VITALS: BP 142/77
[2018-01-15 11:38] VITALS: BP 145/87
[2018-01-15 15:52] VITALS: BP 151/108
[2018-01-15 20:00] VITALS: BP 117/79
[2018-01-16] VITALS: BP 135/68
[2018-01-16 04:00] VITALS: BP 126/75
[2018-01-16 04:51] LABS: CALCIUM 8.9 mg/dL (8.5-10.1); CREATININE 1.3 mg/dL (0.6-1.3); POTASSIUM 3.9 mmol/L (3.5-5.1)
[2018-01-16 05:29] LABS: BE -3.1 mmol/L (-2 to +3); HCO3 22.9 mmol/L (22.0-26.0); PCO2 46.2 mmHg (35.0-45.0); pH 7.314 (7.340-7.450)
[2018-01-16 05:31] LABS: PO2 142.4 mmHg (75.0-100.0)
[2018-01-16 08:15] VITALS: BP 111/91
[2018-01-16 11:43] LABS: INR 1.4; PROTIME 13.8 Seconds (9.20-11.50)
[2018-01-16 12:00] VITALS: BP 131/58
[2018-01-16 15:58] VITALS: BP 111/51
[2018-01-16 20:00] VITALS: BP 98/78
[2018-01-17] VITALS: BP 112/65
[2018-01-17 04:00] VITALS: BP 110/48
[2018-01-17 07:30] VITALS: BP 133/80
--- NOTE | 2018-01-17 09:06 | CON ---
[address] [address] CONSULTATION Name: BONITA HUNT Room: [address] IN .R.#: [id number] Admission: 01/03/18 Attend Phys: Jose Hightower MD Discharge: Date of : 31 Report #: [id number] THIS REPORT FOR: //name// CC: Jose Pereyra DATE OF SERVICE: 01/16/2018 REFERRING PHYSICIAN: Mike Peterson DO. CHIEF COMPLAINT: Hypoxemia. HISTORY OF PRESENT ILLNESS: The patient is an 87-year-old female who is listed now as a DNR. We were asked to see the patient regarding her episodes of desaturation during the course of her hospitalization. More recently, in the last 24-48 hours, she has required BiPAP therapy to help correct her overall oxygen saturation. During the course of her hospitalization, she has undergone evaluation by the GI service as well as by the renal service. She does have chronic kidney disease with a below normal EGFR. It is turning around 35-39. The patient does respond, but she is very weak and limited as far as her history. She has not experienced any nausea, vomiting. She has not had any fever or chills. She denies pain. PAST MEDICAL HISTORY: Significant for esophageal motility disorder, esophageal spasm with narrowing and a high risk of aspiration. She also has a history of urinary tract infections, altered mental status. She has a history of hypothyroidism, coronary artery disease and diabetes. She has had stent placement. She has had hysterectomy. SOCIAL HISTORY: She is a lifelong nonsmoker. In addition to the above also had atrial fibrillation. REVIEW OF SYSTEMS: Not obtainable other than what is outlined above. FAMILY HISTORY: Not pertinent for the patient's age. ALLERGIES: LISINOPRIL, MELOXICAM, METRONIDAZOLE, NITROIMIDAZOLES, ALSO DULOXETINE. CURRENT MEDICATIONS: DuoNeb aerosol treatments, oxygen therapy, promethazine p.r.n., antinausea medication, magnesium and potassium replacement, melatonin, levothyroxine, amlodipine. She has p.r.n. alprazolam and hydrocodone/APAP as needed. PHYSICAL EXAMINATION: [place] [address] CONSULTATION Name: BONITA HUNT Room: [address]#: [id number] Admission: 01/03/18 Attend Phys: Jose Hightower MD Discharge: Date of : 31 Report #: [id number] VITAL SIGNS: Blood pressure 111/91, respiratory rate 18-20, pulse rate 100, irregular, temperature 96.5. Her weight 178 pounds. GENERAL APPEARANCE: The patient is lethargic. She does open her eyes. She does respond. HEENT: Head is atraumatic. Eyes: Pupils are round and equal, reactive. Oral cavity is extremely dry. NECK: No adenopathy. CHEST: Diminished breath sounds, bibasilar crackles, no wheezes or rhonchi. CARDIOVASCULAR: Irregular rhythm, distant heart tones. ABDOMEN: Soft, without organomegaly. In the midline, she has a surgical scar with some subcutaneous nodularity present not sure if this is scar tissue. EXTREMITIES: Revealed 1-2+ edema bilaterally. NEUROLOGIC: The patient does respond, but is very weak and limited in her neuromotor activity. Reviewing her [facility] records reveals that she had a 2D echocardiogram during this hospitalization. This was performed on 01/03/2018 and that study revealed acceptable ejection fraction of 50%. There was concentric ventricular hypertrophy. The right ventricle was normal and functioned appropriately. The atrium showed dilatation bilaterally, greater on the left than the right. There was no evidence of significant valvular disease. LABORATORY DATA: Her initial BNP was greater than 11,000. Today, her electrolytes reveal sodium 143, potassium 3.9, chloride 110, CO2 26, BUN of 9, creatinine 1.3, EGFR 39. INR on 01/12/2018 was 2.0. On 01/08/2018, hemoglobin and hematocrit 7.4 and 23 with a white count of 4000. Arterial blood gas this morning while on BiPAP therapy 7.31, pCO2 of 46, pO2 of 142, bicarbonate of 22. Chest x-ray reveals bilateral effusions, greater on the left than the right. There is an ill-defined patchy density of a linear nature in the mid right lung field. Bibasilar atelectasis. Middle lobe atelectatic changes as well. ASSESSMENT: 1. Esophageal motility disorder with a high risk for aspiration. 2. Episodes of hypoxemia corrected with supplemental oxygen therapy, probably secondary to underlying aspiration. 3. Bilateral effusions. 4. Elevated BNP. 5. Chronic kidney disease. 6. Coronary artery disease status post stent in the past. RECOMMENDATION: Ultrasound of the abdomen will be obtained to better define the abnormal finding on physical exam. In addition, initiate aspiration precaution. I feel that the patient would benefit from nocturnal noninvasive positive pressure ventilation in the form of BiPAP and/or Trilogy device. [address] [address] CONSULTATION Name: BONITA HUNT Room: [address] IN M.R.#: [id number] Admission: 01/03/18 Attend Phys: Jose Hightower MD Discharge: Date of : 31 Report #: [id number] Continue aerosol treatments. Otherwise, no change in her medication. She has already been evaluated by the speech pathology department. She is on thickened liquids. She may need additional hydration and/or at least some oral hygiene because of the significant dryness of her oral cavity. I am not sure that we need to diurese her, but we will check a repeat BNP. <ELECTRONICALLY SIGNED> By: Chuck Gutierrez MD 01/17/18 0906 1009 [id number] Gutierrez MD /nt
[2018-01-17 12:19] VITALS: BP 98/61
[2018-01-17 15:52] VITALS: BP 106/58
[2018-01-17 16:11] LABS: BODY FLUID LDH 41 IU/L (()); BODY FLUID PROTEIN 1.1 g/dL (())
[2018-01-17 19:40] VITALS: BP 85/54
[2018-01-18] VITALS: BP 111/53
[2018-01-18 04:00] VITALS: BP 111/61
[2018-01-18 08:00] VITALS: BP 123/66
[2018-01-18 10:06] LABS: BE -1.4 mmol/L (-2 to +3); HCO3 24.7 mmol/L (22.0-26.0); PCO2 48.5 mmHg (35.0-45.0); PO2 69.5 mmHg (75.0-100.0); pH 7.325 (7.340-7.450)
[2018-01-18 11:08] LABS: SOURCE PLEURAL
[2018-01-18 12:00] VITALS: BP 118/70
[2018-01-18 15:02] VITALS: BP 113/58
[2018-01-18 19:25] VITALS: BP 108/86
[2018-01-19] VITALS: BP 122/68
[2018-01-19 04:00] VITALS: BP 105/83
[2018-01-19 08:00] VITALS: BP 134/59
[2018-01-19 11:20] VITALS: BP 124/60
--- NOTE | 2018-01-19 12:17 | CON ---
[address] [address] CONSULTATION Name: BONITA HUNT Room: [address] IN M.R.#: [id number] Admission: 01/03/18 Attend Phys: Jsoe Hightower MD Discharge: Date of : 32 Report #: [id number] THIS REPORT FOR: //name// CC: Jose Pereyra DATE OF SERVICE: 01/10/2018 HISTORY OF PRESENT ILLNESS: This is an 87-year-old female patient who was evaluated by me for altered mental status. The patient does not provide much history. She is confused. is there. He is not a very good historian. He indicates that this patient has a prolonged stay in [facility]. She had trouble with the abdomen and generalized weakness. He does not know the duration, but looks like it went on for long time. Along the line, she got confused and she continue to be confused, is a severe confusion. He thought she was okay before that, but when I asked him to quantify, he would not do it. REVIEW OF SYSTEMS: Indicate that she has a history of stent placement, gallbladder, hysterectomy, apparently with atrial fibrillation, cancerous tumor. She has been on donepezil, how long it is not clear. She also had hyponatremia. She is on anticoagulation. does not know when was the last time any imaging study was done. I carried out the 14-point review of system in this patient from the and to some extent from the but that is all the history I can get on those things. PAST MEDICAL HISTORY: Positive for prolonged illness in [place], but history is not clear what happened there, but apparently she has a pretty significant deterioration in mentation. FAMILY HISTORY: Negative for dementia. SOCIAL HISTORY: She is . was here and I talked to him. She does not have any history of alcohol or tobacco abuse. PHYSICAL EXAMINATION: Indicate she is alert. She is responsive. She does not know what month it is. She does not know what hospital she is in. Her speech looks okay. Cranial nerve examination 2-12 was attempted. She did not cooperate at all, but I do not see any focal abnormality. She moves both sides. She did not cooperate with the position sense. Looks like she is weak on both legs, especially the left leg, but she want cooperate much. She did not relax . Cardiac examination does appear to be some heart irregularity. She is thinly built individual. Her pulses are difficult to feel. She does not have any edema, cyanosis or jaundice. She does have moderate amount of respiratory difficulty and rhonchi on both sides. Her vision and hearing looks adequate. She has no thyroid mass. There is no carotid bruit. Her blood pressure is 149/59, respirations 17, pulse is 99, temperature 97.8. [place] [address] CONSULTATION Name: BONITA HUNT Room: [address] IN [facility].#: [id number] Admission: 01/03/18 Attend Phys: Jose Hightower MD Discharge: Date of : 32 Report #: [id number] LABORATORY DATA: Her WBC count is 4. Last PT is 16.7. She did not have any imaging study of the brain. IMPRESSION: It would appear that the patient's symptoms are because of encephalopathy. It is difficult to tell whether she has underlying dementia or not. It might be desirable to do a CT to rule out any other etiology. RECOMMENDATIONS: 1. We will get an EEG done. 2. We will go ahead and get a noncontrast CT of the head done. 3. I will check a vitamin B12 level. 4. We will monitor her to see if she shows some improvement by improving her sodium. <ELECTRONICALLY SIGNED> By: Ji Palacios MD 01/19/18 1217 1950 [id number] Palacios MD /nt
[2018-01-19 15:37] VITALS: BP 132/65
--- NOTE | 2018-01-19 16:23 | 2DMMODE ---
[address] [address] 2 D/M-MODE ECHOCARDIOGRAM Name: BONITA HUNT Room: [address] IN [facility]#: [id number] Admission: 01/03/18 Attend Phys: Jose Hightower, Discharge: Date of : 32 Date of Service: 01/19/18 1623 Report #: [id number] THIS REPORT FOR: //name// APPROVED REPORT Study performed: 01/19/2018 15:34:12 EXAM: Limited 2D Echocardiogram Patient Location: In-Patient Room #: 200 Status: routine BSA: 1.84 HR: 105 bpm BP: 124/60 mmHg Rhythm: Atrial Fibrillation Other Information Study Quality: Good Indications Atrial Fibrillation Left Ventricle The left ventricle is normal size. There is global hypokinesis. Mild concentric left ventricular hypertrophy. Left ventricular systolic function is mild to moderately decreased. LVEF is 40-45%. Right Ventricle The right ventricle is normal size. The right ventricular systolic function is normal. Atria Left atrium is moderately dilated. Right atrium is mildly dilated. Aortic Valve Mild aortic valve sclerosis. Mitral Valve There is mitral annular calcification. Tricuspid Valve The tricuspid valve is normal in structure. Pulmonic Valve The pulmonary valve is normal in structure. [facility] [address] [address] 2 D/M-MODE ECHOCARDIOGRAM Name: BONITA HUNT Room: [address] IN M.R.#: [id number] Admission: 01/03/18 Attend Phys: Jose Hightower, Discharge: Date of : 32 Date of Service: 01/19/18 1623 Report #: [id number] Great Vessels IVC is dilated. Pericardium There is no pericardial effusion. <Conclusion> The left ventricle is normal size. Mild concentric left ventricular hypertrophy. Left ventricular systolic function is mild to moderately decreased. LVEF is 40-45%. There is global hypokinesis. Left atrium is moderately dilated. Right atrium is mildly dilated. Mild aortic valve sclerosis. There is mitral annular calcification. There is no pericardial effusion. <ELECTRONICALLY SIGNED> By: Orion Murdock MD, FACC 01/19/18 1623 22 22 Orion Murdock MD, FACC /INF
[2018-01-19 20:00] VITALS: BP 114/76
[2018-01-20] VITALS: BP 122/65
[2018-01-20 04:00] VITALS: BP 115/79
[2018-01-20 08:33] VITALS: BP 130/73
[2018-01-20 12:00] VITALS: BP 153/80
[2018-01-20 15:30] VITALS: BP 136/92
[2018-01-20 20:00] VITALS: BP 148/98
[2018-01-21] VITALS: BP 127/73
[2018-01-21 04:00] VITALS: BP 132/85
[2018-01-21 07:49] VITALS: BP 136/76
[2018-01-21 08:32] LABS: HEMOGLOBIN 7.6 gm/dL (12.0-15.0); MCH 25.6 pg (26.0-34.0); MCHC 31.9 g/dL (28.0-37.0); MCV 80.4 fL (80.0-100.0); MPV 7.5 fl. (7.2-11.1); RBC 2.98 mil/uL (4.20-5.00); WBC 3.5 thou/uL (4.0-11.0)
[2018-01-21 08:41] LABS: CALCIUM 8.9 mg/dL (8.5-10.1); CREATININE 1.6 mg/dL (0.6-1.3); POTASSIUM 3.3 mmol/L (3.5-5.1); TOTAL BILIRUBIN 0.5 mg/dL (<0.1-1.0); TOTAL PROTEIN 5.4 g/dL (6.4-8.2)
[2018-01-21 11:57] VITALS: BP 129/87
[2018-01-21 15:33] VITALS: BP 130/75
[2018-01-21 18:48] LABS: MAGNESIUM 1.5 mg/dL (1.8-2.4)
[2018-01-21 18:50] LABS: POTASSIUM 4.5 mmol/L (3.5-5.1)
[2018-01-21 20:00] VITALS: BP 113/66
[2018-01-22] VITALS: BP 128/63
[2018-01-22 04:00] VITALS: BP 124/59
[2018-01-22 05:14] LABS: HEMOGLOBIN 7.8 gm/dL (12.0-15.0); MCH 25.7 pg (26.0-34.0); MCHC 32.4 g/dL (28.0-37.0); MCV 79.3 fL (80.0-100.0); MPV 7.3 fl. (7.2-11.1); RBC 3.03 mil/uL (4.20-5.00); RDW-CV 21.4 % (10.5-14.5); WBC 3.7 thou/uL (4.0-11.0)
[2018-01-22 06:12] LABS: CREATININE 1.7 mg/dL (0.6-1.3); POTASSIUM 4.1 mmol/L (3.5-5.1)
[2018-01-22 07:56] VITALS: BP 131/89
[2018-01-22 11:58] VITALS: BP 105/66
[2018-01-22 15:55] VITALS: BP 109/73
[2018-01-22 19:35] VITALS: BP 96/60
[2018-01-23] VITALS: BP 128/86
[2018-01-23 04:00] VITALS: BP 107/72
[2018-01-23 08:16] VITALS: BP 107/60
[2018-01-23] MEDS ORDERED: XANAX 0.25 MG0.25 MG PO (10:47)
[2018-01-23 11:24] VITALS: BP 107/60
[2018-01-23 11:59] VITALS: BP 106/57
--- NOTE | 2018-04-27 07:06 | PATH ---
[address] [address] PATHOLOGY RPT PROCEDURE Name: BONITA HUNT Room: [address]#: [id number] Admission: 01/03/18 Date of : 32 Discharge: 01/23/18 Report #: [id number] Path Case #: [id number] Note [facility] Accession Number: [id number] TESTS RESULT FLAG UNITS REF RANGE LAB Clinician Provided Cytology Information No. of containers..01 Other (Miscellaneous) Source: LT PLEURAL FLUID DIAGNOSIS: LT PLEURAL FLUID NEGATIVE FOR MALIGNANT CELLS. MESOTHELIAL CELLS ARE PRESENT. THIS INTERPRETATION INCLUDES EVALUATION OF A CELL BLOCK. Signed out by: 02 Marlo Varela MD, Pathologist NPI- [id number] Performed by: 01 Aileen Zamora, Electronics Hardware Design Engineer ([facility]) Gross description: 01 40ML, YELLOW, CLEAR /LCS FLAG LEGEND: L-Low Normal,H-High Normal,LL-Alert Low,HH-Alert High <-Panic Low,>-Panic High,A-Abnormal,AA-Critical Abnormal Performed at: [address] [address] Tex Valenzuela MD, [address] [place] [id number] Valentin Wilson MD, Specimen Comment: A duplicate report has been generated due to demographic updates. Performed at: [address] [address], [place], [place] [id number] MD Tex Valenzuela MD Phone: [phone]
== END 2018-01-23 16:15 | disposition hospice, home (50) | DRG 177 ==
LOC: M.ERS 20:03 → M.2W 21:56 → M.TBA-ER 21:56 → M.2W 22:52
PROVIDERS: Emergency Medicine; Internal Medicine; Internal Medicine Nephrology; Internal Medicine Pulmonary Disease; Nurse Practitioner Adult Health; ADMIT Internal Medicine
PROC: B548ZZA Ultrasonography of Superior Vena Cava, Guidance (ICD-10-PCS; principal; 2018-01-06)
PROC: 02HV33Z Insertion of Infusion Device into Superior Vena Cava, Percutaneous Approach (ICD-10-PCS; principal; 2018-01-06)
PROC: 5A09357 Assistance with Respiratory Ventilation, Less than 24 Consecutive Hours, Continuous Positive Airway Pressure (ICD-10-PCS; 2018-01-15)
PROC: 0W9B3ZZ Drainage of Left Pleural Cavity, Percutaneous Approach (ICD-10-PCS; 2018-01-16)
PROC: 5A09357 Assistance with Respiratory Ventilation, Less than 24 Consecutive Hours, Continuous Positive Airway Pressure (ICD-10-PCS; 2018-01-17)
PROC: 5A09357 Assistance with Respiratory Ventilation, Less than 24 Consecutive Hours, Continuous Positive Airway Pressure (ICD-10-PCS; 2018-01-19)
PROC: 5A09357 Assistance with Respiratory Ventilation, Less than 24 Consecutive Hours, Continuous Positive Airway Pressure (ICD-10-PCS; 2018-01-20)
PROC: 5A09357 Assistance with Respiratory Ventilation, Less than 24 Consecutive Hours, Continuous Positive Airway Pressure (ICD-10-PCS; 2018-01-21)
PROC: 5A09357 Assistance with Respiratory Ventilation, Less than 24 Consecutive Hours, Continuous Positive Airway Pressure (ICD-10-PCS; 2018-01-22)
PROC: 5A09357 Assistance with Respiratory Ventilation, Less than 24 Consecutive Hours, Continuous Positive Airway Pressure (ICD-10-PCS; 2018-01-23)
DX: J69.0 Pneumonitis due to inhalation of food and vomit (principal); E43 Unspecified severe protein-calorie malnutrition; J96.21 Acute and chronic respiratory failure with hypoxia; G93.40 Encephalopathy, unspecified; I50.23 Acute on chronic systolic (congestive) heart failure; I13.0 Hypertensive heart and chronic kidney disease with heart failure and stage 1 through stage 4 chronic kidney disease, or unspecified chronic kidney disease; N39.0 Urinary tract infection, site not specified; N17.9 Acute kidney failure, unspecified; J90 Pleural effusion, not elsewhere classified; K22.2 Esophageal obstruction; I25.10 Atherosclerotic heart disease of native coronary artery without angina pectoris; N18.3 Chronic kidney disease, stage 3 (moderate); E87.70 Fluid overload, unspecified; F03.90 Unspecified dementia, unspecified severity, without behavioral disturbance, psychotic disturbance, mood disturbance, and anxiety; G89.29 Other chronic pain; M54.9 Dorsalgia, unspecified; Z66 Do not resuscitate; E86.0 Dehydration; E11.22 Type 2 diabetes mellitus with diabetic chronic kidney disease; E03.9 Hypothyroidism, unspecified; I48.2 Chronic atrial fibrillation; Z68.31 Body mass index [BMI] 31.0-31.9, adult; Z79.2 Long term (current) use of antibiotics; Z79.4 Long term (current) use of insulin; Z79.899 Other long term (current) drug therapy; Z88.6 Allergy status to analgesic agent; Z88.8 Allergy status to other drugs, medicaments and biological substances; Z79.01 Long term (current) use of anticoagulants; Z95.5 Presence of coronary angioplasty implant and graft; Z90.49 Acquired absence of other specified parts of digestive tract; Z90.710 Acquired absence of both cervix and uterus